=== PATIENT | female | born 1945 ===

== ENCOUNTER 2022-11-28 05:11 | Day surgery (SDC) | payer OTHER ==
[2022-11-22 09:34] LABS: HEMATOCRIT 46.4 % (36.0-45.00); HEMOGLOBIN 14.7 g/dL (12.0-15.00); MEAN CELL VOLUME 85.7 fL (80.00-100.00); MEAN CORPUSCULAR HEMOGLOBIN 27.1 pg (27.00-32.0); MEAN CORPUSCULAR HGB CONC 31.7 g/dl (32.0-36.0); PLATELET COUNT 281 K/uL (150-450); RED BLOOD COUNT 5.42 M/uL (4.00-6.00); RED CELL DISTRIBUTION WIDTH 15.6 % (11.5-14.5)
[2022-11-22 10:38] LABS: INR 1.05; PARTIAL THROMBOPLASTIN TIME 28.2 SECONDS (22.0-34.0)
[2022-11-22 10:39] LABS: ALBUMIN 3.7 gm/dL (3.4-5.0); BILIRUBIN TOTAL 0.43 mg/dL (0.3-1.2); CALCIUM 9.2 mg/dL (8.5-10.1); CREATININE SERUM 0.68 mg/dL (0.55-1.02); GFR 84.12; POTASSIUM 4.59 mEq/L (3.5-5.1); TOTAL PROTEIN 7.7 gm/dL (6.4-8.2)
[~2022-11-28] VITALS: Ht 149.9 cm; Wt 52.2 kg
[~2022-11-28 05:11] MED LIST: ATORVAST PO; COREG PO; ELAVIL PO; GLIMEPIRIDE2 M1 PO; GLUMETZA1000 MG PO; HORIZANT600 MG PO
== END 2022-11-28 14:45 | disposition home or self-care (01) ==
LOC: CIR.AMB 05:11
PROVIDERS: ATTEND Otolaryngology Otology & Neurotology
DX: H66.91 Otitis media, unspecified, right ear (principal); H61.811 Exostosis of right external canal; H72.91 Unspecified perforation of tympanic membrane, right ear; Z20.822 Contact with and (suspected) exposure to COVID-19; I10 Essential (primary) hypertension; E78.5 Hyperlipidemia, unspecified; E03.9 Hypothyroidism, unspecified